=== PATIENT | female | born 1975 | race Hispanic/Latino ===

== ENCOUNTER 2024-10-27 20:08 | Emergency (ER) | payer OTHER ==
[~2024-10-27] VITALS: Ht 162.6 cm; Wt 77.4 kg
[2024-10-27 20:50] LABS: BASOPHILS 0.2 % (0.1-1.2); EOSINOPHILS 5.7 % (0.7-5.8); LYMPHOCYTES 39.5 % (19.3-51.7); MCH 30.6 PG (25.6-32.2); MCHC 33.5 g/dL (32.2-35.5); MCV 91.4 fL (79.4-94.8); MONOCYTES 4.4 % (4.7-12.5); NEUTROPHILS 49.9 % (34.0-71.1); RBC 4.18 M/uL (3.93-5.22)
[2024-10-27 21:06] LABS: ALT (SGPT) 42.0 U/L (14-59); AST (SGOT) 20.0 U/L (15-37); GLOMERULAR FILTRATION RATE,EST 95.0 mL/min (>60); PROTEIN, TOTAL 7.3 g/dL (6.4-8.2); UREA NITROGEN 13.0 mg/dL (7-18)
[2024-10-27 22:14] LABS: BLOOD/HGB, URINE TRACE-I (Negative); KETONE, URINE NEGATIVE (Negative); LEUK ESTERASE, URINE NEGATIVE (negative); NITRITE, URINE NEGATIVE (negative)
[2024-10-27] MEDS ORDERED: KETOROLAC TROMETHAMINE 30 MG/ML VIAL IV ONE (22:15)
[2024-10-27] MEDS ORDERED: FAMOTIDINE 20 MG/ 2 ML VIAL IV ONE (22:15)
[2024-10-27 22:19] LABS: BACTERIA, URINE RARE /hpf (negative); CASTS, URINE NONE SEEN \\lpf; CRYSTALS, URINE NONE SEEN (0-1+); EPITHELIAL CELLS, URINE SQUAMOUS 1+ /lpf (0-1+); REFLEX CULTURE, URINE No (No)
[2024-10-28 01:48] VITALS: BP 136/69
== END 2024-10-28 01:50 | disposition home or self-care (01) ==
LOC: ED 20:08
PROVIDERS: Internal Medicine
DX: R10.13 Epigastric pain (principal)
CPT/HCPCS: 36415; 76705; 80053; 81001; 83690; 85025; 96374; 96375; 99284-25; J1885; J2405

== ENCOUNTER 2024-11-06 08:34 | Day surgery (SDC) | payer OTHER ==
[~2024-11-06] VITALS: Ht 157.5 cm; Wt 75.0 kg
[~2024-11-06 08:34] MED LIST: CALCIUM500 MG PO
[2024-11-06] MEDS ORDERED: CALCIUM-MAGNES1 EAC9 PO (08:46)
[2024-11-06 08:55] VITALS: BP 148/84
[2024-11-06] MEDS ORDERED: CEFAZOLIN SODIUM 2 GM/20 ML SYR IV SCH (11:17)
[2024-11-06] MEDS ORDERED: BUPIVACAINE HCL 0.5% 30 ML VIAL ONE (11:23)
[2024-11-06] MEDS ORDERED: LIDOCAINE HCL 2% 5 ML SDV ONE (11:27)
[2024-11-06] MEDS ORDERED: ROCURONIUM BROMIDE 50 MG/5 ML SYR ONE (11:28)
[2024-11-06] MEDS ORDERED: MIDAZOLAM HCL 2 MG/2 ML VIAL ONE (11:36)
[2024-11-06] MEDS ORDERED: DEXAMETHASONE SOD PHOS 4 MG/ML VIAL ONE (12:02)
[2024-11-06] MEDS ORDERED: KETOROLAC TROMETHAMINE 30 MG/ML VIAL ONE (12:02)
[2024-11-06] MEDS ORDERED: SUGAMMADEX SODIUM 200 MG/2 ML ML ONE (12:04)
[2024-11-06] MEDS ORDERED: ACETAMINOPHEN 1,000 MG/100 ML VIAL ONE (12:05)
[2024-11-06] MEDS ORDERED: fentaNYL citrate 100 MCG/2 ML VIAL ONE (12:22)
--- NOTE | 2024-11-06 13:21 | NUR ---
11/06/24 1321 Sheets,Margo 1310 PT ARRIVED TO PACU ON 8L VIA MASK, RESP EVEN AND UNLABORED VIA MASK. ORAL AIRWAY IN PLACE. 1314 PT WOKE TO TACTILE STIMULI AND ORAL AIRWAY REMOVED. PT EASILY FALLS BACK TO SLEEP AND RESP EVEN AND UNLABORED, SMALL AMOUNT OF SNORING NOTED.
[2024-11-06 13:52] VITALS: BP 148/70
--- NOTE | 2024-11-06 13:54 | NUR ---
1345 PT TO DS FROM PACU. PT SLEEPY SHE RESPONDS TO VERBAL COMMANDS. PT DENIES PAIN AND NAUSEA. PT DECLINES ANYTHING TO EAT OR DRINK. PTS FAMILY (SON'S X2, DAUGHTER AND ) AT BEDSIDE. BLANKETS PLACED ON PT CALL LIGHT WITHIN REACH.
--- NOTE | 2024-11-06 14:41 | NUR ---
PT REPORTS 8/10 PAIN TO ABD. PT EATING CRACKERS AND DRINKING WATER SHE DENIES PAIN AND NAUSEA. PAIN MEDS GIVEN.
[2024-11-06 14:42] VITALS: BP 133/68
[2024-11-06] MEDS ORDERED: OXYCODONE HCL 5 MG TAB PO PRN (14:45)
--- NOTE | 2024-11-06 14:56 | NUR ---
PT UP TO THE BATHROOM WITH MINIMAL ASSIST. SHE WAS ABLE TO VOID 600ML OF CLEAR YELLOW URINE. PT AMBULATED BACK TO HER ROOM SHE REPORTS PAIN IS THE SAME 11/29. PT TUCKED BACK INTO BED.WARM BLANKETS PLACED ON PT CALL LIGHT WITHIN REACH.
[2024-11-06 15:30] VITALS: BP 112/62
--- NOTE | 2024-11-06 15:51 | NUR ---
1515 DISCHARGE INSTRUCTIONS GIVEN TO PT AND TO FAMILY. ALL VOICED UNDERSTANDING. PT DRESSED WITH MINIMAL ASSIST FROM DAUGHTER.
[2024-11-06] MEDS ORDERED: SEVOFLURANE 250 ML BTL INH ONE (16:26)
== END 2024-11-06 15:35 | disposition home or self-care (01) ==
LOC: DS 08:34
PROVIDERS: ATTEND Surgery
PROC: 0FT44ZZ Resection of Gallbladder, Percutaneous Endoscopic Approach (ICD-10-PCS; principal; 2024-11-06 09:10)
DX: K81.1 Chronic cholecystitis (principal); K82.4 Cholesterolosis of gallbladder; K21.9 Gastro-esophageal reflux disease without esophagitis; Z79.899 Other long term (current) drug therapy
CPT/HCPCS: 00790; A9270; J0131; J0690; J1100; J1885; J2003; J2250; J2405; J2704; J3010; J3490